=== PATIENT | female | born 1990 | race Caucasian/White ===

== ENCOUNTER 2019-10-29 11:34 | Outpatient (CLI) | payer SELFPAY ==
[2019-10-29 13:53] LABS: Appearance,Urine Clear (Clear); Bacteria,Urine Rare /hpf; Bilirubin,Urine Negative (Negative); Blood,Urine Negative (Negative); Color,Urine Yellow; Glucose,Urine (UA) Negative (Negative); Hyaline Casts,Urine 1 /lpf (0-2); Ketones,Urine Trace (Negative); Leukocyte Esterase,Urine Trace (Negative); Mucus,Urine Many /hpf; Nitrite,Urine Negative (Negative); Protein,Urine Trace (Negative); RBC,Urine 1 /hpf (0-5); Specific Gravity,Urine 1.013 (1.001-1.035); Squamous Epithelial Cell,Urine 1 /hpf (0-4); Urobilinogen,Urine <2.0 mg/dL (<2.0); WBC,Urine 4 /hpf (0-5)
[2019-10-29 14:39] VITALS: BP 113/72; PULSE 85; RESP 16; TEMP 98.3
--- NOTE | 2019-11-02 13:55 | P.MSEPDOC ---
Presenting Problems - Arrival Data Date of Arrival on Unit: 10/29/19 Time of Arrival on Unit: 11:35 Mode of Transport: Ambulatory - Complaint OB-Reason for Admission/Chief Complaint: Other Comment: pt arrived c/o emesis diahrrea yesterday and c/ofeeling dizzy today. pt states she phillip her first appointment with dr pena on sunday11/04/2019. pt is a transfer pt from [facility] Medical History - Information : 1 Para: 0 Term: 0 : 0 Abortions: Spontaneous or Elective: 0 Number of Living Children: 0 - Gestational Age Gestational Age by RENE (wks/days): 29 Weeks and 4 Days Review of Systems - Review of Systems Constitutional: No problems Breast: No problems ENT: No problems Cardiovascular: No problems Respiratory: No problems Gastrointestinal: Diarrhea Genitourinary: No problems Musculoskeletal: No problems Neurological: Dizziness Skin: No problems Vital Signs - Temperature Temperature: 98.3 F Temperature Source: Oral - Pulse Right Brachial Pulse Rate: 85 Pulse Assessment Method: Automatic Cuff - Respirations Respiratory Rate: 16 Oxygen Delivery Method: Room Air - Blood Pressure Right Arm Blood Pressure: 113/72 Blood Pressure Mean: 85 Blood Pressure Source: Automatic Cuff Medical Screen Scoring (Pre) - Cervical Exam Dilation: Exam Deferred Effacement: Exam Deferred Membranes: Intact - Uterine Contractions Frequency: N/A Duration: N/A Intensity: N/A - Maternal Vital Signs Maternal Temperature: N/A Maternal Blood Pressure: N/A Signs of Preeclampsia: Nausea/Vomiting = 1 Maternal Respirations: N/A - Maternal Trauma Maternal Trauma: N/A - Assessment - Baby A Baseline FHR: 140 Heart Rate - NICHD Category: Category I (Normal) = 0 NST: Reactive Position: N/A Station: N/A - Total Score - Baby A Total Score - Baby A: 1 - Total Score - Baby B Total Score - Baby B: 1 - Total Score - Baby C Total Score - Baby C: 1 - Level of Risk - Baby A Level of Risk - Baby A: Low (0-5) - Level of Risk - Baby B Level of Risk - Baby B: Low (0-5) - Level of Risk - Baby C Level of Risk - Baby C: Low (0-5) Physician Notification (Pre) - Physician Notified Physician Notified Date: 10/29/19 Physician Notified Time: 13:15 New Order Received: Yes - Notification Comment Comment: clean catch u/a obtained and trace for ketones. pt able to keep fluids down pt drinking ice water. february discharge pt to home orders received @[id number] Disposition - Disposition OB Disposition: Discharge to home Discharge Date: 10/29/19 Discharge Time: 14:29 I agree with the RN Medical Screening Exam: Yes Risk & Benefit of care provided described in d/c instruction: Yes Diagnosis: RELATED CONDITIONS, UNSPECIFIED, THIRD TRIMESTER
== END 2019-10-29 14:29 | disposition home or self-care (01) ==
LOC: FBPOP 11:34
PROVIDERS: ATTEND Obstetrics & Gynecology
DX: O26.93 Pregnancy related conditions, unspecified, third trimester (principal); Z3A.29 29 weeks gestation of pregnancy
CPT/HCPCS: 59025; 81001; 99213

== ENCOUNTER 2020-01-12 08:23 | Inpatient (IN) | payer OTHER ==
[2020-01-15] MEDS ORDERED: OXYTOCIN 10 UNIT/ML 1 ML VIAL IM PRN (12:14)
[2020-01-15] MEDS ORDERED: LIDOCAINE 0.5% (PF) 5 MG/ML (50 ML SDV) SQ PRN (12:14)
[2020-01-15] MEDS ORDERED: CARBOPROST TROMETHAMINE 250 MCG/ML 1 ML AMP IM PRN (12:14)
[2020-01-15] MEDS ORDERED: METHYLERGONOVINE 0.2 MG/ML 1 ML AMP IM PRN (12:14)
[2020-01-15] MEDS ORDERED: TERBUTALINE 1 MG/ML VIAL SQ PRN (12:14)
[2020-01-15] MEDS ORDERED: OXYTOCIN 30 UNITS/500 ML NS 30 UNIT in SALINE 1 500ML.BAG IV SCH (12:15)
[2020-01-15] MEDS ORDERED: LACTATED RINGERS 1,000 ML IV SCH (12:15)
[2020-01-15 12:51] LABS: Basophils % (A) 0 %; Eosinophils # (A) 0.1 k/uL (0-0.7); Eosinophils % (A) 1 %; HCT 36.5 % (34.0-46.0); HGB 12.3 gm/dL (11.4-16.0); Lymphocytes # (A) 1.4 k/uL (1.0-4.8); Lymphocytes % (A) 15 %; MCH 28.9 pg (25.0-35.0); MCHC 33.6 g/dL (31.0-37.0); MCV 86.1 fL (80.0-100.0); Mean Platelet Volume 10.2; Monocytes # (A) 0.3 k/uL (0-1.0); Monocytes % (A) 3 %; Neutrophils # (A) 7.5 k/uL (1.3-7.7); Neutrophils % (A) 79 %; Platelet Count 158 k/uL (150-450); RBC 4.24 m/uL (3.80-5.40); RDW 13.9 % (11.5-15.5); WBC 9.4 k/uL (3.8-10.6)
--- NOTE | 2020-01-15 13:58 | P.HPOB ---
History of Present Illness H&P Date: 01/15/20 Chief Complaint: Oligohydramnios This is a 29-year-old female 1 para 0 with an estimated date of confinement of 01/10/2020, estimated gestational age of 40-5/7 weeks, who was seen in the office today for routine visit. She did undergo an ultrasound today and fluid level was found to be 1.8 cm. She denies any rupture of membranes. She does state she has normal mucous discharge that she has always had but no gushes of fluid. She does admit to good movement. She has been feeling irregular cramping. labs: RPR-nonreactive Quad screen-within normal limits One hour Glucola-77 Rubella-immune Antibody screen-negative Hepatitis B surface antigen-negative Blood type-O+ GC/Chlamydia-negative Group B streptococcus-negative Obstetrical history: . Gynecologic history: No history of sexual transmitted diseases. Social history: She is . Review of Systems Constitutional: Denies chills, Denies fever Eyes: denies blurred vision, denies pain Ears, nose, mouth and throat: Denies headache, Denies sore throat Cardiovascular: Denies chest pain, Denies shortness of breath Respiratory: Denies cough Gastrointestinal: Reports abdominal pain (Irregular contractions) Genitourinary: Reports pelvic pain, Reports Musculoskeletal: Reports low back pain Neurological: Denies numbness, Denies weakness Psychiatric: Reports anxiety, Reports difficulty concentrating Past Medical History Past Medical History: Asthma History of Any Multi-Drug Resistant Organisms: None Reported Additional Past Surgical History / Comment(s): [place] teeth Past Anesthesia/Blood Transfusion Reactions: No Reported Reaction Past Psychological History: Anxiety, Depression Smoking Status: Never smoker Past Alcohol Use History: None Reported Past Drug Use History: None Reported - Past Family History Mother Family Medical History: Hypertension Medications and Allergies Home Medications Medication Instructions Recorded Confirmed Type No Known Home Medications 10/29/19 01/15/20 History Allergies Allergy/AdvReac Type Severity Reaction Status Date / Time No Known Allergies Allergy Verified 01/15/20 12:14 Exam Osteopathic Statement: *. No significant issues noted on an osteopathic stru ctural exam other than those noted in the History and Physical/Consult. Vital Signs Temp Pulse Resp BP 01/15/20 12:13 97.8 F 64 18 118/76 Intake and Output 01/14/20 01/15/20 01/15/20 22:59 06:59 14:59 Other: # Voids 1 Weight 93.894 kg HEENT: Within normal limits Heart: Regular rate and rhythm Lungs: Clear to auscultation bilaterally Abdomen: Cervix: 2-2-1/2 cm/70%/-2 to -1 station heart tones: Reactive Contractions: Irregular Extremities: Negative Homans Results Result Diagrams: 01/15/20 12:26 Assessment and Plan (1) 40 weeks gestation of Current Visit: Yes Status: Acute Code(s): Z3A.40 - 40 WEEKS GESTATION OF SNOMED Code(s): 32661338 (2) Oligohydramnios Current Visit: Yes Status: Acute Code(s): O41.00X0 - OLIGOHYDRAMNIOS, UNSP TRIMESTER, NOT APPLICABLE OR UNSP SNOMED Code(s): 44743523 Plan: Proceed with oxytocin induction of labor. Expectant management. Epidural if desired.
[2020-01-15] MEDS ORDERED: BUTORPHANOL 1 MG/ML 1 ML VIAL IV PRN (16:57)
--- NOTE | 2020-01-15 19:20 | P.PROBDLV ---
Vaginal Delivery Note - . Vaginal Delivery Note: The patient progressed to complete dilation after oxytocin induction of labor and artificial rupture of membranes. She did receive Stadol while in labor. Once reaching complete, she began pushing. Infant's head came to a crown. With one further push, the infant's head delivered across the perineum followed by the anterior shoulder. Nose and mouth were bulb suctioned at the perineum. Nuchal cord times one was reduced around the 's head. With one remaining push, the remainder the easily delivered and was placed on mother's abdomen. The cord was allowed to stop pulsating and then cord was clamped and cut. Infant was taken to warmer for evaluation. A viable male infant was noted with scores of 8 at 1 minute and 8 at 5 minutes and weight was 7 lbs. 8 oz. Placenta delivered shortly thereafter, intact, with a three-vessel cord. Uterus contracted well after oxytocin was given and uterine massage was carried out. Inspection of the perineum revealed a second-degree perineal laceration. This area was anesthetized with 1% lidocaine and then sutured with 3-0 and 2-0 Vicryl suture in the usual multilayer fashion. Estimated blood loss is approximately 200 mL's. Both mother and infant are in stable condition.
[2020-01-15] MEDS ORDERED: ACETAMINOPHEN TAB 325 MG TAB PO PRN (19:34)
[2020-01-15] MEDS ORDERED: BENZOCAINE/MENTHOL SPRAY 1 GM/SPRAY AEROSOL TOPICAL PRN (19:34)
[2020-01-15] MEDS ORDERED: diphenhydrAMINE 50 MG CAP PO PRN (19:34)
[2020-01-15] MEDS ORDERED: ZOLPIDEM 5 MG TAB PO PRN (19:34)
[2020-01-15] MEDS ORDERED: HYDROCORTISONE 2.5% RECTAL CREAM 30 GM TUBE RECTAL PRN (19:34)
[2020-01-15] MEDS ORDERED: WITCH HAZEL 1 EACH MED..PAD TOPICAL PRN (19:34)
[2020-01-15] MEDS ORDERED: LANOLIN CREAM 5 GM TUBE TOPICAL PRN (19:34)
[2020-01-15] MEDS ORDERED: diphenhydrAMINE 50 MG/ML 1 ML VIAL IVP PRN ×2 (19:34)
[2020-01-15] MEDS ORDERED: SIMETHICONE 80 MG CHEWABLE PO PRN (19:34)
[2020-01-15] MEDS ORDERED: OXYTOCIN 20 UNITS/1000 ML NS 1,000 ML IV SCH (19:34)
[2020-01-15] MEDS ORDERED: diphenhydrAMINE 25 MG CAP PO PRN (19:34)
[2020-01-15] MEDS: IBUPROFEN 600 MG TAB PO PRN (20:05)
[2020-01-16] MEDS: SENNOSIDES-DOCUSATE SODIUM 1 EACH TAB PO SCH ×3 (00:51→20:20)
[2020-01-16] MEDS: IBUPROFEN 600 MG TAB PO PRN ×3 (03:38→20:19)
[2020-01-16 07:52] LABS: Basophils % (A) 0 %; Eosinophils # (A) 0.1 k/uL (0-0.7); Eosinophils % (A) 1 %; HCT 28.6 % (34.0-46.0); Lymphocytes # (A) 1.8 k/uL (1.0-4.8); Lymphocytes % (A) 13 %; MCHC 33.6 g/dL (31.0-37.0); MCV 86.1 fL (80.0-100.0); Mean Platelet Volume 10.6; Monocytes # (A) 0.5 k/uL (0-1.0); Monocytes % (A) 4 %; Neutrophils # (A) 11.2 k/uL (1.3-7.7); Neutrophils % (A) 81 %; Platelet Count 146 k/uL (150-450); RBC 3.32 m/uL (3.80-5.40); RDW 14.1 % (11.5-15.5); WBC 13.8 k/uL (3.8-10.6)
[2020-01-16 07:56] LABS: HGB 9.6 gm/dL (11.4-16.0)
--- NOTE | 2020-01-16 08:49 | P.DS ---
Providers Date of admission: 01/15/20 12:02 Expected date of discharge: 01/16/20 Attending physician: No Luong Primary care physician: Stated None - Discharge Diagnosis(es) (1) 40 weeks gestation of Current Visit: Yes Status: Acute (2) Oligohydramnios Current Visit: Yes Status: Acute Hospital Course: This is a 29-year-old 1 para 0 at 40-5/7 weeks who presented after being seen in the office and found to have an HAN of 1.8. She underwent oxytocin induction of labor and delivered vaginally a viable male on 01/15/2020 with scores of 8 at 1 minute and 8 at 5 minutes and infant weight of 7 lbs. 8 oz. Her course has been essentially uncomplicated. Lochia is decreasing. Pain is well-controlled. She has breast- feeding. Vital signs are stable. Abdomen is soft with fundus firm and nontender. Extremities show negative Homans. Impression is status post vaginal delivery day #1. Plan is to discharge home later today as long as the baby is doing well. She will be given a prescription for ibuprofen and a breast pump. She is advised to follow up in the office in 6 weeks for a check. She is advised to call the office if she has any further questions or concerns prior to her appointment time. Procedures: Oxytocin induction of labor Spontaneous vaginal delivery of a viable male on 01/15/2020 Patient Condition at Discharge: Stable Plan - Discharge Summary New Discharge Prescriptions: New Ibuprofen [Motrin] 600 mg PO Q6HR PRN #60 tab PRN Reason: Mild Pain Or Fever >= 100.5 Discharge Medication List Ibuprofen [Motrin] 600 mg PO Q6HR PRN #60 tab 01/16/20 [Rx] Follow up Appointment(s)/Referral(s): No Luong DO [Doctor of Osteopathic Medicine] - 6 Weeks Activity/Diet/Wound Care/Special Instructions: Instructions 1. Do not begin any exercise program for 3 weeks. 2. Do not resume sexual relations for 3 weeks or longer if uncomfortable. 3. You may take tub baths or showers at any time. 4. You may use tampons if desired after 3 weeks. 5. Keep the area of episiotomy (stitches) clean and dry. 6. If you are not nursing, wear a good fitting, supportive bra during the day and limit fluid intake for at least 1 week to prevent breast engorgement. 7. Call the office, [phone], within the next week to make appointment for your 6 week checkup if it has not already been made. 8. Report any of the following occurrences to the doctor promptly: a. Heavy, excessive bleeding b. Chills, fever c. Burning or frequency of urination d. Pain or redness and breasts if nursing e. Increasing pain or swelling in episiotomy (stitches). In addition to the above instructions, the following additional should be followed: 1. No heavy lifting or straining (exercising) until after 6 week checkup. 2. Keep abdominal incision clean and dry: You may wear a dressing if more comfortable. 3. Make office appointment for 10 days after going home or as instructed by her doctor. Discharge Disposition: HOME SELF-CARE
[2020-01-17 08:37] VITALS: BP 105/69; PULSE 90; RESP 18; TEMP 97.5
== END 2020-01-17 09:45 | disposition home or self-care (01) | DRG 807 ==
LOC: 4FBP 01-15 12:02
PROVIDERS: ADMIT Obstetrics & Gynecology; ATTEND Obstetrics & Gynecology
DX: O41.03X0 Oligohydramnios, third trimester, not applicable or unspecified (principal); Z37.0 Single live birth; O69.81X0 Labor and delivery complicated by cord around neck, without compression, not applicable or unspecified; O70.1 Second degree perineal laceration during delivery; Z3A.40 40 weeks gestation of pregnancy; Z87.09 Personal history of other diseases of the respiratory system; Z86.59 Personal history of other mental and behavioral disorders; Z82.49 Family history of ischemic heart disease and other diseases of the circulatory system
CPT/HCPCS: 85025; 86850; 86900; 86901; 88307

== ENCOUNTER 2023-09-06 01:00 | Inpatient (IN) | payer OTHER ==
[2023-09-06] MEDS ORDERED: miSOPROStoL 200 MCG TAB PO PRN (01:38)
[2023-09-06] MEDS ORDERED: LIDOCAINE 0.5% (PF) 5 MG/ML (50 ML SDV) SQ PRN (01:38)
[2023-09-06] MEDS ORDERED: AMPICILLIN 2,000 MG in SODIUM CHLORIDE 0.9% 100 ML IVPB STA (01:38)
[2023-09-06] MEDS ORDERED: TERBUTALINE 1 MG/ML VIAL SQ PRN (01:38)
[2023-09-06] MEDS ORDERED: TRANEXAMIC 1,000 MG/100ML-NACL 1,000 MG in EMPTY BAG 1 BAG IV PRN (01:38)
[2023-09-06] MEDS ORDERED: OXYTOCIN 10 UNIT/ML 1 ML VIAL IM PRN (01:38)
[2023-09-06] MEDS ORDERED: CARBOPROST TROMETHAMINE 250 MCG/ML 1 ML AMP IM PRN (01:38)
[2023-09-06] MEDS ORDERED: METHYLERGONOVINE 0.2 MG/ML 1 ML AMP IM PRN (01:38)
[2023-09-06] MEDS ORDERED: NALBUPHINE 10 MG/ML (10 ML MDV) IV PRN (01:40)
[2023-09-06] MEDS: LACTATED RINGERS 1,000 ML IV SCH ×2 (01:40→12:42)
[2023-09-06] MEDS ORDERED: OXYTOCIN 30 UNITS/500 ML NS 30 UNIT in SALINE 1 500ML.BAG IV SCH ×2 (01:45→03:54)
[2023-09-06 01:56] LABS: Basophils % (A) 0 %; Eosinophils # (A) 0.1 k/uL (0-0.7); Eosinophils % (A) 1 %; HCT 36.9 % (34.0-46.0); HGB 12.3 gm/dL (11.4-16.0); Lymphocytes % (A) 15 %; MCH 28.8 pg (25.0-35.0); MCHC 33.3 g/dL (31.0-37.0); MCV 86.7 fL (80.0-100.0); Mean Platelet Volume 10.9; Monocytes # (A) 0.5 k/uL (0-1.0); Monocytes % (A) 4 %; Neutrophils # (A) 10.8 k/uL (1.3-7.7); Neutrophils % (A) 80 %; Platelet Count 145 k/uL (150-450); RBC 4.26 m/uL (3.80-5.40); RDW 13.6 % (11.5-15.5); WBC 13.6 k/uL (3.8-10.6)
--- NOTE | 2023-09-06 02:43 | P.HPOB ---
History of Present Illness H&P Date: 09/06/23 Chief Complaint: Contractions This is a 33-year-old female 3 para 1 with an estimated date of confinement of 09/10/2023, estimated gestational age of 39 and recent sevenths weeks, who presents to labor and delivery with complaints of contractions that began about 10:30 PM tonight. She denies any rupture of membranes. course has been complicated by hypotension and dizziness. labs: Group B streptococcus-positive MaterniT 21-negative, female Hemoglobin-12.8 Blood type-O+ Rubella-immune Toxoplasma-negative RPR-nonreactive HIV-nonreactive Hepatitis C-negative nonreactive Random glucose-54 Antibody screen-negative Hepatitis B be surface antigen-negative GC/chlamydia/trichomonas-negative Obstetrical history: . History of 1 termination of and one full- term delivery at 40-5/7 weeks. Gynecologic history: History of chlamydia treated in 2008. Also history of warts during her last . Social history: She is . She is unemployed. Review of Systems Constitutional: Denies chills, Denies fever Eyes: denies blurred vision, denies pain Ears, nose, mouth and throat: Denies headache, Denies sore throat Cardiovascular: Reports lightheadedness, Reports rapid heart beat, Denies chest pain Respiratory: Denies cough Gastrointestinal: Reports abdominal pain (Contractions) Genitourinary: Reports pelvic pain, Reports Musculoskeletal: Reports low back pain Integumentary: Denies pruritus, Denies rash Neurological: Denies numbness, Denies weakness Psychiatric: Reports anxiety, Reports depression, Reports difficulty marianna ntrating Past Medical History Past Medical History: Asthma History of Any Multi-Drug Resistant Organisms: None Reported Additional Past Surgical History / Comment(s): [place] teeth Past Anesthesia/Blood Transfusion Reactions: No Reported Reaction Past Psychological History: ADD/ADHD, Anxiety, Depression Smoking Status: Never smoker Past Alcohol Use History: None Reported Past Drug Use History: None Reported - Past Family History Mother Family Medical History: Hypertension Medications and Allergies Home Medications Medication Instructions Recorded Confirmed Type Vit No.179/Iron/Folic 1 each PO DAILY 09/02/23 09/06/23 History [ Tablet] Allergies Allergy/AdvReac Type Severity Reaction Status Date / Time No Known Allergies Allergy Verified 09/02/23 02:16 Exam Osteopathic Statement: *. No significant issues noted on an osteopathic structural exam other than those noted in the History and Physical/Consult. Intake and Output 09/05/23 09/05/23 09/06/23 14:59 22:59 06:59 Other: Weight 94.347 kg Gen.: Well-developed well-nourished gravid female in pain due to labor HEENT: Within normal limits Heart: Regular rate and rhythm Lungs: Clear to auscultation bilaterally Abdomen: Cervix: On admission is 6-7 cm with bulging bag. Currently she is 8 cm/80-90%/-2. Artificial rupture membranes is carried out with clear fluid noted. heart tones: Baseline is 130s with average variability and accelerations, occasional early decelerations. Contractions: Every 1-2 minutes Extremities: Negative Homans Results Result Diagrams: 09/06/23 01:35 Abnormal Lab Results - Last 24 Hours (Table) 09/06/23 Range/Units 01:35 WBC 13.6 H (3.8-10.6) k/uL Plt Count 145 L (150-450) k/uL Neutrophils # 10.8 H (1.3-7.7) k/uL Assessment and Plan (1) 39 weeks gestation of Current Visit: Yes Status: Acute Code(s): Z3A.39 - 39 WEEKS GESTATION OF SNOMED Code(s): 27012198 (2) Group B Streptococcus carrier, +RV culture, currently Current Visit: Yes Status: Acute Code(s): O99.820 - STREPTOCOCCUS B CARRIER STATE COMPLICATING SNOMED Code(s): 8599277185400 Plan: Admission for active labor. Nitrous oxide per patient request for pain control. Expectant management. Antibiotic prophylaxis for group B streptococcus. Patient has requested delayed cord clamping and no oxytocin after delivery and lush she is hemorrhaging. I did discuss that the purpose of oxytocin is so that she does not hemorrhage and we don't want to wait until she is hemorrhaging before giving it to her. We'll watch her bleeding and if necessary give oxytocin. Patient is concerned that this causes depression. I have advised her that there is no medical literature to substantiate this.
--- NOTE | 2023-09-06 03:23 | P.PROBDLV ---
Vaginal Delivery Note - . Vaginal Delivery Note: The patient progressed to complete dilation fairly rapidly after nitrous oxide and artificial rupture membranes with clear fluid noted. She pushed for approximately 1 push and infant's head came to a crown. With one remaining push, the remainder of the 's head delivered across the perineum followed by the anterior shoulder. Nose and mouth were bulb suctioned. With one remaining push, the delivered and was placed on mother's abdomen. Terminal meconium was noted. Cord clamping was delayed approximately 30 seconds per patient request. Once the cord finish pulsating, the cord was clamped and cut and was then taken to warmer for evaluation by nursing staff. A viable female is noted with scores of 9 at 1 minute and 9 at 5 minutes and infant weight of 7 lbs. 14 oz. Placenta was not ready to separate yet and therefore inspection of the perineum revealed a second-degree perineal laceration. This area was anesthetized with 1% lidocaine and then sutured with 30 and 2-0 Vicryl suture in the usual multilayer fashion. Placenta was finally ready to separate. Placenta delivered intact with a three-vessel cord. Uterus firmed up fairly well after uterine massage but was still noted to be oozing and tripling. Patient was given the option of starting oxytocin or giving a shot of Methergine. She agreed to oxytocin but would like it stopped in a shorter time than normal as long as her bleeding has been minimal. Estimated blood loss is approximately 150 mL's. Both mother and infant are in stable condition.
[2023-09-06] MEDS ORDERED: LANOLIN CREAM 5 GM TUBE TOPICAL PRN (03:54)
[2023-09-06] MEDS ORDERED: ZOLPIDEM 5 MG TAB PO PRN (03:54)
[2023-09-06] MEDS ORDERED: BENZOCAINE/MENTHOL SPRAY 1 GM/SPRAY AEROSOL TOPICAL PRN (03:54)
[2023-09-06] MEDS ORDERED: SIMETHICONE 80 MG CHEWABLE PO PRN (03:54)
[2023-09-06] MEDS ORDERED: ACETAMINOPHEN TAB 325 MG TAB PO PRN (03:54)
[2023-09-06] MEDS ORDERED: diphenhydrAMINE 50 MG/ML 1 ML VIAL IVP PRN ×2 (03:54)
[2023-09-06] MEDS ORDERED: diphenhydrAMINE 25 MG CAP PO PRN (03:54)
[2023-09-06] MEDS ORDERED: HYDROCORTISONE 2.5% RECTAL CREAM 30 GM TUBE RECTAL PRN (03:54)
[2023-09-06] MEDS ORDERED: diphenhydrAMINE 50 MG CAP PO PRN (03:54)
[2023-09-06] MEDS ORDERED: AMPICILLIN 1,000 MG in SODIUM CHLORIDE 0.9% 50 ML IVPB SCH (05:45)
--- NOTE | 2023-09-06 07:34 | P.MSEPDOC ---
Presenting Problems - Arrival Data Date of Arrival on Unit: 09/06/23 Time of Arrival on Unit: 01:00 Mode of Transport: Ambulatory - Complaint OB-Reason for Admission/Chief Complaint: Possible Onset of Labor Comment: contractions q 1-3 min since 11pm. Medical History - Information : 3 Para: 1 Term: 0 : 0 Abortions: Spontaneous or Elective: 0 Number of Living Children: 1 - Gestational Age Gestational Age by RENE (wks/days): 39 Weeks and 3 Days Review of Systems - Review of Systems Constitutional: No problems Breast: No problems ENT: No problems Cardiovascular: No problems Respiratory: No problems Gastrointestinal: No problems Genitourinary: No problems Musculoskeletal: No problems Neurological: No problems Skin: No problems Vital Signs - Temperature Temperature: 97.8 F Temperature Source: Oral - Pulse Right Pulse Rate: 75 Pulse Assessment Method: Automatic Cuff - Respirations Respiratory Rate: 16 Oxygen Delivery Method: Room Air - Blood Pressure Right Arm Blood Pressure: 114/78 Blood Pressure Mean: 90 Blood Pressure Source: Automatic Cuff Medical Screen Scoring - Cervical Exam Dilation (cm): 6.5 Effacement (%): 80 Station: -1 - Uterine Contractions Frequency From (mins): 1 Frequency To (mins): 3 Duration From (seconds): 40 Duration To (seconds): 60 Intensity: Strong Resting: Soft to palpation - Assessment - Baby A Baseline FHR: 13 Heart Rate - NICHD Category: Category I (Normal) NST: Reactive Physician Notification - Physician Notified Physician Notified Date: 09/06/23 Physician Notified Time: 01:36 Physician: Dr Luong New Order Received: Yes (Order admit for labor, antibiotics for GBS and nitrous) Maternal Triage Index - Maternal Triage Index Presenting for scheduled procedure w/no complaint: No - Stat/Priority 1 Stat Priority 1: No - Urgent/Priority 2 Urgent Priority 2: No - Prompt/Priority 3 Prompt Priority 3: Yes Criteria Met for Priority 3: 39 week active labor Disposition - Disposition OB Disposition: Admit I agree with the RN Medical Screening Exam: Yes Case reviewed; plan agreed upon as documented in EMR&OBIX.: Yes Diagnosis: ENCOUNTER FOR FULL-TERM UNCOMPLICATED DELIVERY
[2023-09-06] MEDS: SENNOSIDES-DOCUSATE SODIUM 1 EACH TAB PO SCH ×2 (08:28→20:01)
[2023-09-06] MEDS: IBUPROFEN 600 MG TAB PO PRN ×3 (08:29→23:56)
[2023-09-06] MEDS: PRENATAL VIT-IRON-FOLIC ACID 1 EACH TABLET PO SCH (10:11)
[2023-09-06 14:34] VITALS: RESP 16
[2023-09-07 07:17] LABS: Basophils % (A) 0 %; Eosinophils # (A) 0.1 k/uL (0-0.7); Eosinophils % (A) 1 %; HCT 30.8 % (34.0-46.0); HGB 10.3 gm/dL (11.4-16.0); Lymphocytes # (A) 2.3 k/uL (1.0-4.8); Lymphocytes % (A) 21 %; MCH 29.3 pg (25.0-35.0); MCHC 33.3 g/dL (31.0-37.0); MCV 88.1 fL (80.0-100.0); Mean Platelet Volume 11.2; Monocytes # (A) 0.4 k/uL (0-1.0); Monocytes % (A) 4 %; Neutrophils # (A) 8.3 k/uL (1.3-7.7); Neutrophils % (A) 74 %; Platelet Count 140 k/uL (150-450); RDW 14.1 % (11.5-15.5); WBC 11.3 k/uL (3.8-10.6)
[2023-09-07] MEDS: SENNOSIDES-DOCUSATE SODIUM 1 EACH TAB PO SCH (07:41)
[2023-09-07] MEDS: PRENATAL VIT-IRON-FOLIC ACID 1 EACH TABLET PO SCH (07:42)
--- NOTE | 2023-09-07 07:52 | P.DS ---
Providers Date of admission: 09/06/23 01:20 Expected date of discharge: 09/07/23 Attending physician: No Luong Primary care physician: Stated None - Discharge Diagnosis(es) (1) 39 weeks gestation of Current Visit: Yes Status: Acute (2) Group B Streptococcus carrier, +RV culture, currently Current Visit: Yes Status: Acute Hospital Course: This is a 33-year-old female 3 para 1 at 39-3/7 weeks who presented in active labor. She delivered vaginally a viable female infant on 09/06/2023 with scores of 9 at 1 minute and 9 at 5 minutes and infant weight of 7 lbs. 14 oz. Her course has been uncomplicated. Lochia has been decreasing. Her pain is been fairly well-controlled. He is breast-feeding. Vital signs are stable. Abdomen is soft with fundus firm and nontender. Extremities show negative Homans. Impression is status post vaginal delivery day #1. Plan is to discharge home today. She denies the need for any pain medication. She has a breast pump at home. She is advised follow-up in the office in 6 weeks for check. She is advised to call the office if she has any further questions or concerns prior to her appointment time. Procedures: Spontaneous vaginal delivery of a viable female on 09/06/2023 Patient Condition at Discharge: Stable Plan - Discharge Summary New Discharge Prescriptions: Continue Vit No.179/Iron/Folic [ Tablet] 1 each PO DAILY Discharge Medication List Vit No.179/Iron/Folic [ Tablet] 1 each PO DAILY 09/02/23 [H istory] Follow up Appointment(s)/Referral(s): No Luong DO [Doctor of Osteopathic Medicine] - 10/17/23 4:00 pm Activity/Diet/Wound Care/Special Instructions: Instructions 1. Do not begin any exercise program for 3 weeks. 2. Do not resume sexual relations for 3 weeks or longer if uncomfortable. 3. You may take tub baths or showers at any time. 4. You may use tampons if desired after 3 weeks. 5. Keep the area of episiotomy (stitches) clean and dry. 6. If you are not nursing, wear a good fitting, supportive bra during the day and limit fluid intake for at least 1 week to prevent breast engorgement. 7. Call the office, [phone], within the next week to make appointment for your 6 week checkup if it has not already been made. 8. Report any of the following occurrences to the doctor promptly: a. Heavy, excessive bleeding b. Chills, fever c. Burning or frequency of urination d. Pain or redness and breasts if nursing e. Increasing pain or swelling in episiotomy (stitches). In addition to the above instructions, the following additional should be followed: 1. No heavy lifting or straining (exercising) until after 6 week checkup. 2. Keep abdominal incision clean and dry: You may wear a dressing if more co mfortable. 3. Make office appointment for 10 days after going home or as instructed by her doctor. Discharge Disposition: HOME SELF-CARE
[2023-09-07 08:03] VITALS: BP 97/64; PULSE 66; TEMP 97.8
== END 2023-09-07 13:00 | disposition home or self-care (01) | DRG 807 ==
LOC: FBPOP 01:00 → 4FBP 01:20
PROVIDERS: ADMIT Obstetrics & Gynecology; ATTEND Obstetrics & Gynecology
PROC: 10907ZC Drainage of Amniotic Fluid, Therapeutic from Products of Conception, Via Natural or Artificial Opening (ICD-10-PCS; principal; 2023-09-06)
PROC: 10E0XZZ Delivery of Products of Conception, External Approach (ICD-10-PCS; 2023-09-06)
PROC: 0KQM0ZZ Repair Perineum Muscle, Open Approach (ICD-10-PCS; 2023-09-06)
DX: O99.824 Streptococcus B carrier state complicating childbirth (principal); O99.344 Other mental disorders complicating childbirth; I95.9 Hypotension, unspecified; F32.A Depression, unspecified; O77.0 Labor and delivery complicated by meconium in amniotic fluid; O70.1 Second degree perineal laceration during delivery; F41.9 Anxiety disorder, unspecified; Z3A.39 39 weeks gestation of pregnancy; Z86.19 Personal history of other infectious and parasitic diseases; Z37.0 Single live birth
CPT/HCPCS: 59025; 85025; 86850; 86900; 86901; 99213

== ENCOUNTER 2025-01-24 07:35 | Inpatient (IN) | payer BC, OTHER ==
--- NOTE | 2025-01-24 08:19 | ED ---
General Adult HPI - General Chief complaint: Recheck/Abnormal Lab/Rx Stated complaint: Seizure Time Seen by Provider: 01/24/25 07:44 Source: patient, family, RN notes reviewed Mode of arrival: ambulatory Limitations: no limitations - History of Present Illness Initial comments: 34-year-old female presents to the emergency department for potential seizure about 1 hour prior to arrival. Patients states that she woke up this morning feeling as though she was having a panic attack which she has a history of. She notes feeling throughout her whole body. Following this, the patient started "shaking" throughout her whole body according to the . He states that this lasted 2 to 3 minutes. The patient's notes that at that time she was not responding to him. States that he grabbed some ice and put it on her arms she was not responding at this time but once he put ice on her back he states that the patient tried to push him away. He did notice some blood dripping from her mouth. He noticed that she seemed to have bitten her tongue. She also states that she wet her pants. Patient states that upon awakening she was disoriented and tingling throughout her body. She notes a headache mostly in her temples. She is otherwise feeling improved. She notes that over the past 24 hours she has had multiple panic attacks. She is otherwise felt like her typical self. Denies any fever, chills, nausea, vomiting, dysuria, a bdominal pain, headaches. Denies any seizure history. - Related Data Home Medications Medication Instructions Recorded Confirmed Vit No.179/Iron/Folic 1 tab PO DAILY 09/02/23 01/24/25 [ Tablet] Cbd Tab 1 tab PO HS 01/24/25 01/24/25 Citalopram Hydrobromide [CeleXA] 40 mg PO HS 01/24/25 01/24/25 Previous Rx's Medication Instructions Recorded Acetaminophen Tab [Tylenol] 650 mg PO Q6HR PRN tab 01/26/25 levETIRAcetam [Keppra] 500 mg PO Q12HR 30 Days #60 tab 01/26/25 Allergies Allergy/AdvReac Type Severity Reaction Status Date / Time vilazodone [From Viibryd] AdvReac Suicidal Verified 01/24/25 14:03 Ideations Review of Systems ROS Statement: Those systems with pertinent positive or pertinent negative responses have been documented in the HPI. ROS Other: All systems not noted in ROS Statement are negative. Past Medical History Past Medical History: Asthma History of Any Multi-Drug Resistant Organisms: None Reported Past Surgical History: No Surgical Hx Reported Additional Past Surgical History / Comment(s): [place] teeth Past Anesthesia/Blood Transfusion Reactions: No Reported Reaction Past Psychological History: ADD/ADHD, Anxiety, Depression Smoking Status: Never smoker Past Alcohol Use History: Occasional Past Drug Use History: None Reported - Past Family History Mother Family Medical History: Hypertension General Exam Limitations: no limitations General appearance: alert, in no apparent distress Head exam: Present: atraumatic, normocephalic, normal inspection Eye exam: Present: normal appearance, PERRL, EOMI. Absent: scleral icterus, conjunctival injection, periorbital swelling ENT exam: Present: normal exam, mucous membranes moist Neck exam: Present: normal inspection. Absent: tenderness, meningismus, lymphadenopathy Respiratory exam: Present: normal lung sounds bilaterally. Absent: respiratory distress, wheezes, rales, rhonchi, stridor Cardiovascular Exam: Present: regular rate, normal rhythm, normal heart sounds. Absent: systolic murmur, diastolic murmur, rubs, gallop, clicks GI/Abdominal exam: Present: soft, normal bowel sounds. Absent: distended, tenderness, guarding, rebound, rigid Extremities exam: Present: normal inspection, full ROM, normal capillary refill. Absent: tenderness, pedal edema, joint swelling, calf tenderness Back exam: Present: normal inspection Neurological exam: Present: alert, oriented X3, CN II-XII intact Psychiatric exam: Present: normal affect, normal mood Skin exam: Present: warm, dry, intact, normal color. Absent: rash Course Vital Signs 01/24/25 01/24/25 01/24/25 07:37 09:05 10:52 Temperature 98.9 F 98.6 F 98.5 F Pulse Rate 82 60 73 Pulse Rate [ Pulse Oximetery ] Respiratory 18 17 16 Rate Blood Pressure 116/79 98/63 96/62 Blood Pressure [Left Arm] O2 Sat by Pulse 96 98 98 Oximetry 01/24/25 01/24/25 01/24/25 12:40 13:18 15:13 Temperature 96.9 F L Pulse Rate 94 79 67 Pulse Rate [ Pulse Oximetery ] Respiratory 15 17 17 Rate Blood Pressure 82/53 101/65 99/65 Blood Pressure [Left Arm] O2 Sat by Pulse 97 98 100 Oximetry 01/24/25 01/24/25 01/24/25 16:30 17:28 18:03 Temperature 98.6 F 98.3 F Pulse Rate 68 Pulse Rate [ 68 Pulse Oximetery ] Respiratory 17 18 16 Rate Blood Pressure 103/71 Blood Pressure 99/64 [Left Arm] O2 Sat by Pulse 100 98 Oximetry Medical Decision Making - Medical Decision Making Was pt. sent in by a medical professional or institution (, PA, RN CORRECTIONS, urgent care, hospital, or [place] health care facility...) When possible be specific @ -No Did you speak to anyone other than the patient for history (EMS, parent, family, police, friend...)? What history was obtained from this source @ -No Did you review nursing and triage notes (agree or disagree)? Why? @ -I reviewed and agree with nursing and triage notes Were old charts reviewed (outside hosp., previous admission, EMS record, old EKG, old radiological studies, urgent care reports/EKG's, [place] health care facility records)? Report findings @ -No old charts were reviewed Differential Diagnosis (chest pain, altered mental status, abdominal pain women, abdominal pain men, vaginal bleeding, weakness, fever, dyspnea, syncope, headache, dizziness, GI bleed, back pain, seizure, CVA, palpatations, mental health, musculoskeletal)? @ -Differential Seizure: Recurrent seizure disorder, febrile seizure, alcohol withdrawal, stimulants, meningitis, encephalitis, intercranial hemorrhage, intracranial tumor, stroke, eclampsia, thyrotoxicosis, hypocalcemia, hyponatremia, hypernatremia, hypomagnesemia, psychogenic, this is not meant to be an all-inclusive list. EKG interpreted by me (3pts min.). @ -EKG atEKG reveals sinus rhythm rate of 61, OK 150, QRS 93, QTQTc [id number] X-rays interpreted by me (1pt min.). @ -None done CT interpreted by me (1pt min.). @ -CT brain shows no acute process U/S interpreted by me (1pt. min.). @ -None done What testing was considered but not performed or refused? (CT, X-rays, U/S, labs)? Why? @ -None What meds were considered but not given or refused? Why? @ -None Did you discuss the management of the patient with other professionals (professionals i.e. , JOSE LUIS, RN CORRECTIONS, lab, RT, psych nurse, dialysis social worker, immersion metal cleaner, teacher, emergency response officer, keycase assembler)? Give summary @ -The case was discussed with Dr. Nick, neurology who recommends that the patient be started on Keppra 500 mg twice daily, admitted with MRI and EEG Management discussed with Dr. Zuluaga with [facility] was accepting of the admission Was smoking cessation discussed for >3mins.? @ -No Was critical care preformed (if so, how long)? @ -No Were there social determinants of health that impacted care today? How? (Homelessness, low income, unemployed, alcoholism, drug addiction, transportation, low edu. Level, literacy, decrease access to med. care, snf, rehab)? @ -No Was there de-escalation of care discussed even if they declined (Discuss DNR or withdrawal of care, Hospice)? DNR status @ -No What co-morbidities impacted this encounter? (DM, HTN, Smoking, COPD, CAD, Cancer, CVA, ARF, Chemo, Hep., AIDS, mental health diagnosis, sleep apnea, morbid obesity)? @ -None Was patient admitted / discharged? Hospital course, mention meds given and route, prescriptions, significant lab abnormalities, going to OR and other pertinent info. @ -Admitted patient presented the emergency department for seizure-like activity that occurred at home today. Laboratory studies were obtained there is no significant leukocytosis, hemoglobin 12.7; CMP is nonactionable UA shows no evidence of infectious process, negative urine hCG, negative salicylates, acetaminophen, alcohol, negative urine drug screen. While in the emergency department the patient did have seizure-like activity again in which she bit her tongue. She did receive 2 mg of Ativan at that time and was seizing stopped quickly after that. Total duration of seizure activity was 1 to 2 minutes. Post seizure activity lactic acid was 11.9. Patient was provided IV fluid hydr ation in the emergency department. The case was discussed with neurology, Dr. Nick who recommends that the patient be continued on 500 mg Keppra twice daily. The patient will be admitted. Management was discussed with Dr. Zuluaga with [facility] was accepting of the admission Case discussed with Dr. Vargas Undiagnosed new problem with uncertain prognosis? @ -No Drug Therapy requiring intensive monitoring for toxicity (Heparin, Nitro, Insulin, Cardizem)? @ -No Were any procedures done? @ -No Diagnosis/symptom? @ -New onset seizure Acute, or Chronic, or Acute on Chronic? @ -Acute Uncomplicated (without systemic symptoms) or Complicated (systemic symptoms)? @ -complicated Side effects of treatment? @ -No Exacerbation, Progression, or Severe Exacerbation? @ -No Poses a threat to life or bodily function? How? (Chest pain, USA, NV, pneumonia, PE, COPD, DKA, ARF, appy, cholecystitis, CVA, Diverticulitis, Homicidal, Suicidal, threat to staff... and all critical care pts) @ -No - Lab Data Result diagrams: 01/24/25 08:49 01/24/25 08:49 Lab Results 01/24/25 01/24/25 01/24/25 Range/Units 08:49 08:49 08:49 WBC 7.91 (4.50-10.00) 10*3/uL RBC 4.32 (4.10-5.20) 10*6/uL Hgb 12.7 (12.0-15.0) g/dL Hct 38.4 (37.2-46.3) % MCV 88.9 (80.0-97.0) fL MCH 29.4 (27.0-32.0) pg MCHC 33.1 (32.0-37.0) g/dL Plt Count 178 (140-440) 10*3/uL MPV 11.1 (9.5-12.2) fL Immature Gran % (Auto) 0.3 % Neutrophils % 80.2 % Lymphocytes % 14.5 % Monocytes % 3.4 % Eosinophils % 1.0 % Basophils % 0.6 % Immature Gran # 0.02 (0.00-0.04) 10*3/uL Neutrophils # 6.34 (1.80-7.70) 10*3/uL Lymphocytes # 1.15 (0.90-5.00) 10*3/uL Monocytes # 0.27 (0.20-1.00) 10*3/uL Eosinophils # 0.08 (0.04-0.35) 10*3/uL Basophils # 0.05 (0.00-0.10) 10*3/uL Sodium 137 (137-145) mmol/L Potassium 4.4 (3.5-5.1) mmol/L Chloride 106 (98-107) mmol/L Carbon Dioxide 26 (22-30) mmol/L Anion Gap 5 mmol/L BUN 16 (7-17) mg/dL Creatinine 0.69 (0.52-1.04) mg/dL Est GFR (CKD-EPI)AfAm >90 (>60 ml/min/1.73 sqM) Est GFR (CKD-EPI)NonAf >90 (>60 ml/min/1.73 sqM) Glucose 89 (74-99) mg/dL POC Glucose (mg/dL) (70-110) mg/dL POC Glu [employer] Senior Developer ID Lactic Ac Sepsis Rflx Plasma Lactic Acid Robin (0.7-2.0) mmol/L Calcium 9.2 (8.4-10.2) mg/dL Magnesium 2.0 (1.6-2.3) mg/dL Total Bilirubin 0.9 (0.2-1.3) mg/dL AST 21 (14-36) U/L ALT 16 (4-34) U/L Alkaline Phosphatase 82 (38-126) U/L Creatine Kinase 64 (30-135) U/L Total Protein 6.6 (6.3-8.2) g/dL Albumin 3.9 (3.5-5.0) g/dL Urine Color Urine Appearance (Clear) Urine pH (5.0-8.0) Ur Specific Wisner (1.001-1.035) Urine Protein (Negative) Urine Glucose (UA) (Negative) Urine Ketones (Negative) Urine Blood (Negative) Urine Nitrite (Negative) Urine Bilirubin (Negative) Urine Urobilinogen (<2.0) mg/dL Ur Leukocyte Esterase (Negative) Urine HCG, Qual (Not Detectd) Salicylates <1.0 mg/dL Urine Opiates Screen (NotDetected) Ur Oxycodone Screen (NotDetected) Urine Methadone Screen (NotDetected) Acetaminophen <10.0 ug/mL Ur Barbiturates Screen (NotDetected) U Tricyclic Antidepress (NotDetected) Ur Phencyclidine Scrn (NotDetected) Ur Amphetamines Screen (NotDetected) U Methamphetamines Scrn (NotDetected) U Benzodiazepines Scrn (NotDetected) Urine Cocaine Screen (NotDetected) U Marijuana (THC) Screen (NotDetected) Serum Alcohol <10 mg/dL 01/24/25 01/24/25 01/24/25 Range/Units 12:02 12:02 12:38 WBC (4.50-10.00) 10*3/uL RBC (4.10-5.20) 10*6/uL Hgb (12.0-15.0) g/dL Hct (37.2-46.3) % MCV (80.0-97.0) fL MCH (27.0-32.0) pg MCHC (32.0-37.0) g/dL Plt Count (140-440) 10*3/uL MPV (9.5-12.2) fL Immature Gran % (Auto) % Neutrophils % % Lymphocytes % % Monocytes % % Eosinophils % % Basophils % % Immature Gran # (0.00-0.04) 10*3/uL Neutrophils # (1.80-7.70) 10*3/uL Lymphocytes # (0.90-5.00) 10*3/uL Monocytes # (0.20-1.00) 10*3/uL Eosinophils # (0.04-0.35) 10*3/uL Basophils # (0.00-0.10) 10*3/uL Sodium (137-145) mmol/L Potassium (3.5-5.1) mmol/L Chloride (98-107) mmol/L Carbon Dioxide (22-30) mmol/L Anion Gap mmol/L BUN (7-17) mg/dL Creatinine (0.52-1.04) mg/dL Est GFR (CKD-EPI)AfAm (>60 ml/min/1.73 sqM) Est GFR (CKD-EPI)NonAf (>60 ml/min/1.73 sqM) Glucose (74-99) mg/dL POC Glucose (mg/dL) 111 H (70-110) mg/dL POC Glu [employer] Senior Developer ID Arnaldo Playcie Lactic Ac Sepsis Rflx Plasma Lactic Acid Robin (0.7-2.0) mmol/L Calcium (8.4-10.2) mg/dL Magnesium (1.6-2.3) mg/dL Total Bilirubin (0.2-1.3) mg/dL AST (14-36) U/L ALT (4-34) U/L Alkaline Phosphatase (38-126) U/L Creatine Kinase (30-135) U/L Total Protein (6.3-8.2) g/dL Albumin (3.5-5.0) g/dL Urine Color Colorless Urine Appearance Clear (Clear) Urine pH 7.5 (5.0-8.0) Ur Specific Wisner 1.020 (1.001-1.035) Urine Protein Negative (Negative) Urine Glucose (UA) Negative (Negative) Urine Ketones Negative (Negative) Urine Blood Negative (Negative) Urine Nitrite Negative (Negative) Urine Bilirubin Negative (Negative) Urine Urobilinogen <2.0 (<2.0) mg/dL Ur Leukocyte Esterase Negative (Negative) Urine HCG, Qual Not Detected (Not Detectd) Salicylates mg/dL Urine Opiates Screen Not Detected (NotDetected) Ur Oxycodone Screen Not Detected (NotDetected) Urine Methadone Screen Not Detected (NotDetected) Acetaminophen ug/mL Ur Barbiturates Screen Not Detected (NotDetected) U Tricyclic Antidepress Not Detected (NotDetected) Ur Phencyclidine Scrn Not Detected (NotDetected) Ur Amphetamines Screen Not Detected (NotDetected) U Methamphetamines Scrn Not Detected (NotDetected) U Benzodiazepines Scrn Not Detected (NotDetected) Urine Cocaine Screen Not Detected (NotDetected) U Marijuana (THC) Screen Not Detected (NotDetected) Serum Alcohol mg/dL 01/24/25 01/24/25 Range/Units 12:46 15:30 WBC (4.50-10.00) 10*3/uL RBC (4.10-5.20) 10*6/uL Hgb (12.0-15.0) g/dL Hct (37.2-46.3) % MCV (80.0-97.0) fL MCH (27.0-32.0) pg MCHC (32.0-37.0) g/dL Plt Count (140-440) 10*3/uL MPV (9.5-12.2) fL Immature Gran % (Auto) % Neutrophils % % Lymphocytes % % Monocytes % % Eosinophils % % Basophils % % Immature Gran # (0.00-0.04) 10*3/uL Neutrophils # (1.80-7.70) 10*3/uL Lymphocytes # (0.90-5.00) 10*3/uL Monocytes # (0.20-1.00) 10*3/uL Eosinophils # (0.04-0.35) 10*3/uL Basophils # (0.00-0.10) 10*3/uL Sodium (137-145) mmol/L Potassium (3.5-5.1) mmol/L Chloride (98-107) mmol/L Carbon Dioxide (22-30) mmol/L Anion Gap mmol/L BUN (7-17) mg/dL Creatinine (0.52-1.04) mg/dL Est GFR (CKD-EPI)AfAm (>60 ml/min/1.73 sqM) Est GFR (CKD-EPI)NonAf (>60 ml/min/1.73 sqM) Glucose (74-99) mg/dL POC Glucose (mg/dL) (70-110) mg/dL POC Glu [employer] Senior Developer ID Lactic Ac Sepsis Rflx Y Plasma Lactic Acid Robin 11.9 H* (0.7-2.0) mmol/L Calcium (8.4-10.2) mg/dL Magnesium (1.6-2.3) mg/dL Total Bilirubin (0.2-1.3) mg/dL AST (14-36) U/L ALT (4-34) U/L Alkaline Phosphatase (38-126) U/L Creatine Kinase (30-135) U/L Total Protein (6.3-8.2) g/dL Albumin (3.5-5.0) g/dL Urine Color Urine Appearance (Clear) Urine pH (5.0-8.0) Ur Specific Wisner (1.001-1.035) Urine Protein (Negative) Urine Glucose (UA) (Negative) Urine Ketones (Negative) Urine Blood (Negative) Urine Nitrite (Negative) Urine Bilirubin (Negative) Urine Urobilinogen (<2.0) mg/dL Ur Leukocyte Esterase (Negative) Urine HCG, Qual (Not Detectd) Salicylates mg/dL Urine Opiates Screen (NotDetected) Ur Oxycodone Screen (NotDetected) Urine Methadone Screen (NotDetected) Acetaminophen ug/mL Ur Barbiturates Screen (NotDetected) U Tricyclic Antidepress (NotDetected) Ur Phencyclidine Scrn (NotDetected) Ur Amphetamines Screen (NotDetected) U Methamphetamines Scrn (NotDetected) U Benzodiazepines Scrn (NotDetected) Urine Cocaine Screen (NotDetected) U Marijuana (THC) Screen (NotDetected) Serum Alcohol mg/dL Disposition Clinical Impression: New onset seizure Disposition: ADMITTED IP TO THIS HOSP Condition: Stable Is patient prescribed a controlled substance at d/c from ED?: No
[2025-01-24] MEDS: SODIUM CHLORIDE 0.9% 1,000 ML IV STA (08:59)
[2025-01-24 09:04] LABS: Basophils # (A) 0.05 10*3/uL (0.00-0.10); Basophils % (A) 0.6 %; Eosinophils # (A) 0.08 10*3/uL (0.04-0.35); HCT 38.4 % (37.2-46.3); HGB 12.7 g/dL (12.0-15.0); Lymphocytes # (A) 1.15 10*3/uL (0.90-5.00); Lymphocytes % (A) 14.5 %; MCH 29.4 pg (27.0-32.0); MCHC 33.1 g/dL (32.0-37.0); MCV 88.9 fL (80.0-97.0); Mean Platelet Volume 11.1 fL (9.5-12.2); Monocytes # (A) 0.27 10*3/uL (0.20-1.00); Monocytes % (A) 3.4 %; Neutrophils # (A) 6.34 10*3/uL (1.80-7.70); Neutrophils % (A) 80.2 %; Platelet Count 178 10*3/uL (140-440); RBC 4.32 10*6/uL (4.10-5.20); RDW 13.1 % (11.5-14.5); WBC 7.91 10*3/uL (4.50-10.00)
--- NOTE | 2025-01-24 09:27 | CT ---
EXAMINATION TYPE: CT brain wo con DATE OF EXAM: 01/24/2025 COMPARISON: None CLINICAL INDICATION: Female, 34 years old with history of seizure activity; PHH, SEIZURE CT DLP: 1094.4 mGycm Automated exposure control for dose reduction was used. Findings: The ventricles, basal cisterns and sulci over the convexities are within normal limits and there is n o mass effect or shift of midline structures. No abnormal density is seen throughout the brain parenchyma and there is no acute intra or extra-axia l hemorrhage. The posterior fossa including the brainstem, fourth ventricle and cerebellar pontine angles appear no rmal. Intraorbital contents appear normal and symmetric. Visualized paranasal sinuses and mastoid air cells are well aerated. The calvarium is intact. IMPRESSION: No significant abnormality seen. There is no acute bleed or mass effect. [facility], , 01/24/2025 9:25 AM
[2025-01-24 09:31] LABS: ALT 16 U/L (4-34); AST 21 U/L (14-36); Acetaminophen <10.0 ug/mL; African American GFR (CKD) >90 (>60 ml/min/1.73 sqM); Albumin 3.9 g/dL (3.5-5.0); Alcohol <10 mg/dL; Alkaline Phosphatase 82 U/L (38-126); Anion Gap 5 mmol/L; Blood Urea Nitrogen 16 mg/dL (7-17); Calcium 9.2 mg/dL (8.4-10.2); Carbon Dioxide 26 mmol/L (22-30); Chloride 106 mmol/L (98-107); Glucose 89 mg/dL (74-99); Non-African American GFR(CKD) >90 (>60 ml/min/1.73 sqM); Potassium 4.4 mmol/L (3.5-5.1); Salicylate <1.0 mg/dL; Sodium 137 mmol/L (137-145); Total Bilirubin 0.9 mg/dL (0.2-1.3); Total Protein 6.6 g/dL (6.3-8.2)
[2025-01-24] MEDS: IBUPROFEN 800 MG TAB PO STA (10:54)
[2025-01-24] MEDS: LORazepam 2 MG/ML INJ IV STA ×2 (12:10→12:35)
[2025-01-24 12:14] LABS: Appearance,Urine Clear (Clear); Bilirubin,Urine Negative (Negative); Blood,Urine Negative (Negative); Color,Urine Colorless; Glucose,Urine (UA) Negative (Negative); Ketones,Urine Negative (Negative); Leukocyte Esterase,Urine Negative (Negative); Nitrite,Urine Negative (Negative); PH, Urine 7.5 (5.0-8.0); Protein,Urine Negative (Negative); Urobilinogen,Urine <2.0 mg/dL (<2.0)
[2025-01-24 12:30] LABS: Amphetamine Screen,Urine Not Detected (NotDetected); Barbiturate Screen,Urine Not Detected (NotDetected); Benzodiazepines Screen,Urine Not Detected (NotDetected); Cocaine Screen,Urine Not Detected (NotDetected); Methadone Screen, Urine Not Detected (NotDetected); Opiate Screen,Urine Not Detected (NotDetected); Oxycodone Screen, Urine Not Detected (NotDetected); Phencyclidine Screen,Urine Not Detected (NotDetected); Tricyclic Antidepressant,Urine Not Detected (NotDetected); Urn Cannabinoid Scrn Not Detected (NotDetected)
[2025-01-24 12:40] LABS: Glucose,Whole Blood 111 mg/dL (70-110)
[2025-01-24] MEDS: levETIRAcetam IV 500 MG/5 ML VIAL IVP STA (13:22)
[2025-01-24] MEDS ORDERED: NALOXONE 0.4 MG/ML 1 ML VIAL IV PRN (16:24)
[2025-01-24] MEDS ORDERED: MORPHINE SULFATE 4 MG/ML SYRINGE IV PRN (16:24)
[2025-01-24] MEDS ORDERED: LORazepam 0.5 MG TAB PO PRN (16:24)
[2025-01-24] MEDS ORDERED: LORazepam 2 MG/ML INJ IV PRN (16:26)
[2025-01-24] MEDS: SODIUM CHLORIDE 0.9% 1,000 ML IV ONE (16:34)
--- NOTE | 2025-01-24 17:33 | P.CNNES ---
History of Present Illness Consult date: 01/24/25 Requesting physician: Tatiana Ribeiro Reason for Consult: New onset seizures History of Present Illness: Patient is a 34-year-old female with history of panic attacks, presented to the hospital today at 7:35 AM with new onset seizures. Patient's family members were present by the bedside, who provided with a history. Patient has been suffering from panic attacks off and on for last 5 to 6 years. They would occur once every few months, lasting for about less than 5 minutes. From November 30, 2024, until November, patient had 2-3 panic attacks per day. She was started on Celexa 20 mg in early part of December 2024. As the symptoms did not improve, the dose of Celexa was increased to 40 mg and has been on it since then. Patient's mentions that when she is having a panic attack, he tries to calm her down with somewhat deep breathing he talks it out. She sometimes gets nausea or vomiting after the event. After the panic attack, patient feels somewhat tired for almost an hour. She does not lose memory, or has any alteration of consciousness during the "panic attack". These episodes occur sometimes "completely out of blue". Patient woke up early this morning at around 2 or 3 AM with a panic attack. It lasted for a minute. She went back to sleep. Then woke up again at 6:30 AM with a panic attack that led to a grand mal seizure. The seizure lasted about 1-1/2-minute. She was postictal for about 5 to 10 minutes after. She bit her tongue with a seizure, did not lose control of urine. The family brought her to the hospital. Patient's mentions that while she was in the ER at around 1030 to 11 AM, she had another panic attack, but did not lead to a seizure. However at 12:30 PM, she woke up from sleep with a panic attack and then had a second seizure in which she again bit her tongue. Per nursing report, her eyelids started twitching then her eyes rolled back into her head, and began to convulse. Patient was given 2mg of ativan which was given. pt. was placed on side, 3L of o2 applied. after ativan was administered seizure stopped almost immediately. seizure lasted from anywhere froma minute two after staff was made aware. Vital signs on arrival blood pressure 116/79, pulse rate 82, temperature 98.9. Patient has been afebrile. Blood test shows normal CBC, CMP. Lactate is elevated 11.9. UA negative. Urine drug screen negative, blood alcohol level negative. EKG showed sinus rhythm. CT head showed no significant abnormality. No acute bleed or mass effect. I personally reviewed CT head, agree with the findings. Patient denies any history of head injury. Patient does have strong family history of febrile seizures, in her maternal grandmother, patient's her own sister and one of her knees has febrile seizures. All of them outgrew it. Patient herself never had any history of seizures in her life. Patient at present admits to having headache 04/16. Patient denies any tobacco or alcohol use. Patient has 4 children, the youngest is 16 months old. Review of Systems All pertinent positive and negative review of systems mentioned in the HPI. Otherwise unremarkable. Past Medical History Past Medical History: Asthma History of Any Multi-Drug Resistant Organisms: None Reported Past Surgical History: No Surgical Hx Reported Additional Past Surgical History / Comment(s): [place] teeth Past Anesthesia/Blood Transfusion Reactions: No Reported Reaction Past Psychological History: ADD/ADHD, Anxiety, Depression Smoking Status: Never smoker Past Alcohol Use History: Occasional Past Drug Use History: None Reported - Past Family History Mother Family Medical History: Hypertension Medications and Allergies Home Medications Medication Instructions Recorded Confirmed Type Vit No.179/Iron/Folic 1 tab PO DAILY 09/02/23 01/24/25 History [ Tablet] Cbd Tab 1 tab PO HS 01/24/25 01/24/25 History Citalopram Hydrobromide [CeleXA] 40 mg PO HS 01/24/25 01/24/25 History Allergies Allergy/AdvReac Type Severity Reaction Status Date / Time vilazodone [From Viibryd] AdvReac Suicidal Verified 01/24/25 14:03 Ideations Physical Examination - Vital Signs Vital Signs: Vital Signs Temp Pulse Resp BP Pulse Ox 01/24/25 15:13 67 17 99/65 100 01/24/25 13:18 79 17 101/65 98 01/24/25 12:40 96.9 F L 94 15 82/53 97 01/24/25 10:52 98.5 F 73 16 96/62 98 01/24/25 09:05 98.6 F 60 17 98/63 98 01/24/25 07:37 98.9 F 82 18 116/79 96 Intake and Output 01/24/25 01/24/25 01/24/25 06:59 14:59 22:59 Other: Weight 81.647 kg Patient is a young female, laying in the bed. Patient was sleeping/postictal when I was interviewing the family. When examination started, patient has to be woken up manage patient then slowly became more alert and awake and at the end of the examination, she was fully alert and awake. Patient is oriented to time place and person. She knows it is January 2025 and that she is in [facility] imported on [place]. Speech and language functions are normal. Patient can name and repeat very well. No aphasia or dysarthria. Attention, concentration and fund of knowledge is adequate. On cranial nerve examination, pupils are equal, round and reacting to light, visual ornelas are full on confrontation, with no neglect on double simultaneous stimulation. Extraocular muscles are intact with no nystagmus. Face is symmetric, tongue protrudes to the midline. Palatal elevation and sensation normal, hearing and shoulder shrug normal, facial sensation normal. Patient does have evidence of tongue bite munir on the right side. On muscle strength testing, there is no pronator drift and the strength is normal in arms and legs distally and proximally. Deep tendon reflexes are symmetric 2+ in the arms and legs and plantars downgoing. Sensory to touch is equal with no neglect on double simultaneous stimulation. Cerebellar function showed no ataxia for [id number] testing. No dy sdiadochokinesia. No ataxia for fwog-zp-prno testing on either side. Tone and bulk of muscles normal. Gait deferred.. On general examination, there is no carotid bruit or murmur, S1-S2 audible. C hest is clear on consultation. Abdomen is soft nontender. No organomegaly, bowel sounds present. Peripheral pulses are present. No peripheral edema. Results - Laboratory Findings CBC and BMP: 01/24/25 08:49 01/24/25 08:49 Abnormal Lab Findings: Abnormal Labs 01/24/25 01/24/25 12:38 12:46 POC Glucose (mg/dL) 111 H Plasma Lactic Acid Robin 11.9 H* Assessment and Plan Assessment: * New onset seizure, unclear cause. Patient has presented with grand mal seizures x 2, each of them preceded with her "panic attack". Patient has been suffering from "panic attacks" off and on for about 5 to 6 years, which could be possible simple partial seizures. Concerned about temporal lobe seizures. * Strong family history of febrile convulsions * Elevated lactate, likely due to seizure. Plan: * Patient has been loaded with Keppra 1 g IVPB in the ER. Patient to be started on Keppra 500 mg twice daily. * Ativan 1 mg as needed seizure. * EEG evaluate for epileptiform activity * MRI of the brain with and without contrast, rule out mass lesion. Rule out MTS. * Seizure precaution * Patient informed of [place] state law of no driving unless seizure-free for 6 months, climbing ladders, operating dangerous machinery or unsupervised swimming. * Neurology will follow. Thank you for the consult.
[2025-01-24] MEDS: SODIUM CHLORIDE 0.9% 1,000 ML IV SCH (18:22)
[2025-01-24] MEDS ORDERED: LORazepam 1 MG/0.5 ML VIAL IV PRN (19:15)
[2025-01-24] MEDS: CITALOPRAM HYDROBROMIDE 20 MG TAB PO SCH (21:10)
[2025-01-24] MEDS: levETIRAcetam IV 500 MG/5 ML VIAL IVP SCH (21:10)
[2025-01-25] MEDS: ACETAMINOPHEN TAB 325 MG TAB PO PRN (10:39)
[2025-01-25 12:41] VITALS: TEMP 98.4
--- NOTE | 2025-01-25 13:40 | P.HPIM ---
History of Present Illness H&P Date: 01/25/25 History of present illness: 34-year-old female with past medically significant for panic attacks who presented to ER on 01/24/2025 morning with new onset of seizures. Multiple family members present at the bedside. Patient has history of panic attacks on and off for last 5 to 6 years, would occur once every few months, lasting for about less than 5 minutes. Patient has been on Celexa, recently Celexa dose was increased as patient's symptoms did not improve in December. Patient sometimes get nausea or vomiting after the panic attacks. Patient would be tired for almost an hour after panic attacks. On day of presentation patient woke up in the morning around 2 or 3 AM with a panic attack, lasted for a minute, patient went back to sleep, woke up again with a panic attack leading to a grand mal seizure, lasting 1 to 1-1/2-minute, patient was confused for 5 to 10 minutes afterwards, had a tongue bite with a seizure, denied loss of bowel or bladder, was brought to the hospital, had another episode of seizure while in the ED. Patient had had her eyelids starting twitching, then her eyes rolled back into her head and patient began to convulse, was given 2 mg Ativan, oxygen was applied, patient was placed on the side. Patient's seizure stopped after Ativan administration. Patient is afebrile, heart rate 70, respiratory rate 16, blood pressure 100/65, saturating 97% on room air. WBC 7.9, hemoglobin 12.7, platelet 178. CMP unremarkable. Urine drug screen negative. CT head negative for any acute process. Assessment and plan: New onset seizure: History of panic attacks: Presented with grand mal seizures 2 episodes, preceded by her panic attacks Elevated lactate on presentation likely secondary to seizure, has strong family history of febrile convulsions Continue Keppra, as needed Ativan, EEG, MRI, seizure precautions Neurology consulted, no driving, climbing ladders, operating dangerous machinery or unsupervised swimming for at least 6 months. DVT prophylaxis SCD Monitor vital signs and labs Labs and medication were reviewed. Continue same treatment. Further recommendations as per clinical course of the patient PHYSICAL EXAMINATION: GENERAL: The patient is A&O x3, NAD HEENT: EOMI, Sclerae anicteric, Moist Mucous membranes Neck: Supple, Non tender, No JVD PULMONARY: Equal breath souds B/L, No wheezing, No crackles. CARDIOVASCULAR: S1, S2 present. No murmurs, rubs, or gallops. ABDOMEN: Soft, nontender, nondistended, normoactive bowel sounds. No guarding or rebound tenderness. MUSCULOSKELETAL: No edema, No cyanosis. No clubbing. Normal ROM. Intact peripheral pulses. NEUROLOGICAL: CN 2-12 grossly intact. No FND REVIEW OF SYSTEMS: CONSTITUTIONAL: No fever, no malaise, no fatigue. HEENT: No recent visual problems or hearing problems. Denied any sore throat. CARDIOVASCULAR: No chest pain, orthopnea, PND, no palpitations, no syncope. PULMONARY: No shortness of breath, no cough, no hemoptysis. GASTROINTESTINAL: No diarrhea, no nausea, no vomiting, no abdominal pain. NEUROLOGICAL: No headaches, no weakness, no numbness. HEMATOLOGICAL: Denies any bleeding or petechiae. GENITOURINARY: Denies any burning micturition, frequency, or urgency. MUSCULOSKELETAL/RHEUMATOLOGICAL: Denies any joint pain, swelling, or any muscle pain. ENDOCRINE: Denies any polyuria or polydipsia. The rest of the 14-point review of systems is negative. Dictation was produced using [employer] software. please excuse any grammatical, word or spelling errors. Past Medical History Past Medical History: Asthma History of Any Multi-Drug Resistant Organisms: None Reported Past Surgical History: No Surgical Hx Reported Additional Past Surgical History / Comment(s): [place] teeth Past Anesthesia/Blood Transfusion Reactions: No Reported Reaction Past Psychological History: ADD/ADHD, Anxiety, Depression Smoking Status: Never smoker Past Alcohol Use History: Occasional Past Drug Use History: None Reported - Past Family History Mother Family Medical History: Hypertension Medications and Allergies Home Medications Medication Instructions Recorded Confirmed Type Vit No.179/Iron/Folic 1 tab PO DAILY 09/02/23 01/24/25 History [ Tablet] Cbd Tab 1 tab PO HS 01/24/25 01/24/25 History Citalopram Hydrobromide [CeleXA] 40 mg PO HS 01/24/25 01/24/25 History Allergies Allergy/AdvReac Type Severity Reaction Status Date / Time vilazodone [From Viibryd] AdvReac Suicidal Verified 01/24/25 14:03 Ideations Physical Exam Vitals: Vital Signs Temp Pulse Pulse Resp BP BP Pulse Ox 01/25/25 12:00 98.4 F 70 16 100/65 97 01/25/25 08:00 98.2 F 72 16 95/59 97 01/25/25 03:38 67 12 93/57 97 01/24/25 23:20 75 14 96/56 96 01/24/25 20:00 97.8 F 87 14 101/67 97 01/24/25 18:03 98.3 F 68 16 103/71 98 01/24/25 17:28 98.6 F 68 18 99/64 100 01/24/25 16:30 17 01/24/25 15:13 67 17 99/65 100 Intake and Output 01/24/25 01/25/25 01/25/25 22:59 06:59 14:59 Intake Total 540 Balance 540 Intake: Oral 540 Other: Voiding Method Toilet Toilet # Voids 1 Weight 81.647 kg Results CBC & Chem 7: 01/24/25 08:49 01/24/25 08:49 Labs: Abnormal Lab Results - Last 24 Hours (Table) 01/24/25 Range/Units 12:46 Plasma Lactic Acid Robin 11.9 H* (0.7-2.0) mmol/L Thrombosis Risk Factor Assmnt - Choose All That Apply Any of the Below Risk Factors Present?: No Other Risk Factors: No Other congenital or acquired thrombophilia - If yes, enter type in comment: No Thrombosis Risk Factor Assessment Level: Very Low Risk
--- NOTE | 2025-01-25 14:21 | P.PN ---
Subjective Progress Note Date: 01/25/25 Patient was seen for a follow-up. Patient is sitting in the bed, having her lunch. Multiple family members present. No further seizures, no further panic type attacks. Patient does admit to having some headache. She has tried ice pack and ibuprofen. Blood pressure is good. No new concerns. Objective - Vital Signs Vital signs: Vital Signs Temp 98.4 F 01/25/25 12:00 Pulse 70 01/25/25 12:00 Resp 16 01/25/25 12:00 BP 100/65 01/25/25 12:00 Pulse Ox 97 01/25/25 12:00 FiO2 Intake & Output 01/24/25 01/25/25 01/25/25 18:59 06:59 18:59 Intake Total 540 Balance 540 Weight 81.647 kg Intake: Oral 540 Other: Voiding Method Toilet Toilet # Voids 1 - Exam Mentation completely normal. Examination normal. - Labs CBC & Chem 7: 01/24/25 08:49 01/24/25 08:49 Labs: Abnormal Lab Results - Last 24 Hours (Table) 01/24/25 Range/Units 12:46 Plasma Lactic Acid Robin 11.9 H* (0.7-2.0) mmol/L Assessment and Plan Assessment: * New onset seizure, unclear cause. Patient has presented with grand mal seizures x 2, each of them preceded with her "panic attack". Patient has been suffering from "panic attacks" off and on for about 5 to 6 years, which could be possible simple partial seizures. Concerned about temporal lobe seizures. * Strong family history of febrile convulsions * Elevated lactate, likely due to seizure. Plan: * Patient has been loaded with Keppra 1 g IVPB in the ER. Patient to be continued on Keppra 500 mg twice daily. * Ativan 1 mg as needed seizure. * EEG evaluate for epileptiform activity * MRI of the brain with and without contrast, rule out mass lesion. Rule out MTS. * Seizure precaution * Patient is concerned about breast-feeding with receiving Ativan and MRI brain with contrast. Recommend pump and dump at least for now. Patient states her breast milk has been "blue", which is of uncertain cause, could be from overhydration. * Patient informed of [place] state law of no driving unless seizure-free for 6 months, climbing ladders, operating dangerous machinery or unsupervised swimming. * Dr. Joel Kay to start neurology service from Sunday.
[2025-01-26 08:12] VITALS: RESP 16
--- NOTE | 2025-01-26 10:32 | MR ---
INDICATION: Patient age:Female; 34 years old; Reason for study: New onset seizures; PHH. COMPARISON: CT brain 01/24/2025. TECHNIQUE: Multi planar, multi sequence imaging was performed through the brain. The patient was then given 8 cc of Gadobutrol intravenously and multi planar, T1 fat-saturation images were obtained. FINDINGS: The zhao-white junctions, ventricular system, basal cisterns appear unremarkable. Age-appropriate cer ebral parenchymal volume. Diffusion-weighted imaging shows no evidence of restricted diffusion to sug gest acute/subacute infarct. Intracranial arterial flow voids are maintained. Midline structures show no abnormality. Both mesial temporal regions are symmetric. Left frontal lobe subcortical 2 mm FLAIR signal hyperintense focus (series 601, image 26). The susceptibility weighted images do not reveal a ny evidence for micro-hemorrhage. After administration of gadolinium, no abnormal enhancement is seen . The bone marrow signal is within normal limits. The globes are unremarkable. Mild mucosal thickening in the bilateral maxillary sinuses and ethmoid sinuses. IMPRESSION: 1. No evidence of intracranial mass, acute/subacute infarct, or abnormal enhancement. 2. Single left frontal lobe white matter FLAIR hyperintense focus. This is nonspecific with a variety of etiologies including demyelinating disease versus chronic migraine versus small vessel ischemic d isease versus other. [facility], , 01/26/2025 10:30 AM
[2025-01-26 12:12] VITALS: BP 108/70; PULSE 70
--- NOTE | 2025-01-26 14:20 | P.PN ---
Subjective Progress Note Date: 01/26/25 I am seeing the patient for the first time during this admission. Please refer to Dr. Nick's notes for further details. Patient was accompanied with her family members who provides some of the history. It seems that this Sunday she had seizure-like activity outside the hospital and she had another seizure-like activity while in the hospital. She bit her tongue. She denies any known seizure prior to this. It seems that she was having panic attacks. She continues to be breast-feeding her daughter that is close to 1.5 years. She was started on Keppra 500 mg twice daily and my colleague recommended to resume that. No further seizure-like activity. Objective - Vital Signs Vital signs: Vital Signs Temp 98.4 F 01/25/25 20:11 Pulse 70 01/26/25 12:11 Resp 16 01/26/25 12:11 BP 108/70 01/26/25 12:11 Pulse Ox 100 01/26/25 12:11 FiO2 Intake & Output 01/25/25 01/26/25 01/26/25 18:59 06:59 18:59 Intake Total 480 118 Balance 480 118 Weight 88.3 kg Intake: Oral 480 118 Other: Voiding Method Toilet Toilet # Voids 2 # Bowel Movements 0 - Exam General: Lying in bed and is not in acute distress. Neuro: The patient is awake alert oriented to self place and time. Is following simple commands. No aphasia no neglect The pupils are round equal reactive to light. Pupils are round 4 mm bilaterally. Visual ornelas are full to confrontation. Extraocular moods intact no nystagmus. No facial weakness. No dysarthria Motor is the strength is 5 out of 5 throughout. - Labs CBC & Chem 7: 01/24/25 08:49 01/24/25 08:49 Assessment and Plan Assessment: * New onset seizure, unclear cause. Patient has presented with grand mal seizures x 2, each of them preceded with her "panic attack". Patient has been suffering from "panic attacks" off and on for about 5 to 6 years, which could be possible simple partial seizures. Concerned about temporal lobe seizures. * Strong family history of febrile convulsions * Elevated lactate, likely due to seizure. Plan: * Patient has been loaded with Keppra 1 g IVPB in the ER. Patient to be continued on Keppra 500 mg twice daily. * Ativan 1 mg as needed seizure. * EEG: Preliminary is negative for seizures. * MRI of the brain with and without contrast: There is no evidence of intracranial mass, acute/subacute infarct or abnormal enhancement. Single left frontal lobe white matter FLAIR hyperintense focus. This is nonspecific with a variety of etiology including demyelinating disease versus chronic migraine versus small vessel ischemic disease versus other. Personally reviewed the MRI and further few lesions seen on the FLAIR does not seem suggestive of multiple sclerosis. * Seizure precaution * Patient is concerned about breast-feeding with receiving Ativan and MRI brain with contrast. Dr. Nick recommended pump and dump at least for now. * Stated earlier patient is breast-feeding. I notified the patient that she needs to talk to her physician as an outpatient regarding continuation or discontinuation of breast-feeding especially that her child is close to about a year and 1/2 years old and currently she is taking Keppra which can pass into the breastmilk. I notified her that if the patient child has any sleepiness more than normal or confusion to stop the medication immediately and to seek attention for the child. * Patient informed of [place] state law of no driving unless seizure-free for 6 months, climbing ladders, operating dangerous machinery or unsupervised swimming. * Upon discharge recommend the patient to follow-up with neurologist as an outpatient within 2 to 3-week. There is no further neurological workup. Will sign off. Please reconsult if needed The plan discussed with the patient and her mother and sisters were at bedside Time with Patient: Less than 30
[2025-01-26 15:28] VITALS: BMI 35.6
--- NOTE | 2025-01-26 22:13 | EEG ---
ELECTROENCEPHALOGRAM REPORT CLINICAL HISTORY: This is a 34-year-old woman with a history of seizure-like activity. The video EEG is obtained to evaluate for seizure epileptiform activity. RELEVANT MEDICATION: Keppra. EEG TYPE: This is a routine 21-channel EEG with video using the 10/20 electrode placement system. DESCRIPTION: Wakefulness is only obtained. During awake state, the posterior-dominant rhythm consists of [id number] voltage of 9.5 to 10 hertz activity that is well modulated and well sustained. There is no physiological stage 2 sleep architecture. There is no focal slowing. Interictal and ictal are none. ACTIVATION PROCEDURE: Photic stimulation did not evoke a posterior driving response. There is no abnormality during the photic stimulation. Hyperventilation is not performed. CLINICAL INTERPRETATION: This is a normal routine EEG. During awake state, there is no focal slowing, epileptiform discharge, or seizure on the EEG. A normal routine EEG does not rule out underlying epilepsy. Clinical correlation is recommended. LUCILA / ETHANN: [id number] /
== END 2025-01-26 15:36 | disposition home or self-care (01) | DRG 101 ==
LOC: EC 07:35 → 3SCARD 16:42
PROVIDERS: ADMIT Internal Medicine; ATTEND Internal Medicine
DX: G40.409 Other generalized epilepsy and epileptic syndromes, not intractable, without status epilepticus (principal); E87.20 Acidosis, unspecified; F41.0 Panic disorder [episodic paroxysmal anxiety]; Z88.8 Allergy status to other drugs, medicaments and biological substances
CPT/HCPCS: 36415; 70450; 70553; 80053; 80143; 80179; 80306; 80320; 81003; 81025; 82550; 83605; 83735; 85025; 93005; 95816; 96361; 96374; 96375; 99285